=== PATIENT | male | born 2000 | race Caucasian/White ===

== ENCOUNTER 2022-07-03 19:47 | Emergency (ER) | payer MEDICAID ==
[~2022-07-03] VITALS: Ht 182.9 cm; Wt 70.5 kg
[2022-07-03] MEDS ORDERED: ACETAMINOPHEN 500 MG TABLET PO ONE (20:00)
[2022-07-03] MEDS ORDERED: GuaiFENesin/D-METHORPHAN [SUGAR-FREE] 200-20MG/10 ML SYRUP UDCUP PO ONE (20:00)
[2022-07-03] MEDS ORDERED: IBUPROFEN 600 MG TABLET PO ONE (20:00)
[2022-07-03 20:12] LABS: COVID AG,FIA SOURCE NASAL SWAB
[2022-07-03 20:37] LABS: INFLUENZA TYPE B NEGATIVE FOR TYPE B (NEGATIVE)
[2022-07-03 21:03] LABS: INFLUENZA TYPE A POSITIVE FOR TYPE A (NEGATIVE)
[2022-07-03] MEDS ORDERED: GUAIFDM PO (21:11)
[2022-07-03] MEDS ORDERED: ACET-2080 PO (21:11)
[2022-07-03] MEDS ORDERED: IBUP-1554 PO (21:11)
[2022-07-03 21:30] VITALS: BP 115/77
== END 2022-07-03 21:35 | disposition home or self-care (01) ==
LOC: EMS 19:47
DX: J10.1 Influenza due to other identified influenza virus with other respiratory manifestations (principal); Z20.822 Contact with and (suspected) exposure to COVID-19
CPT/HCPCS: 87804; 99284; Z7502; Z7610

== ENCOUNTER 2022-09-16 09:38 | Emergency (ER) | payer MEDICAID, OTHER ==
[~2022-09-16] VITALS: Ht 175.3 cm; Wt 72.7 kg
[~2022-09-16 09:38] MED LIST: ACET-2080 PO; GUAIFDM PO; IBUP-1554 PO
[2022-09-16 11:04] LABS: BASOPHILS % (AUTO) 0.2 % (0.0-2.0); EOSINOPHILS % (AUTO) 0 % (1.0-6.0); HEMATOCRIT 43.2 % (41-53); HEMOGLOBIN 14.2 g/dL (13.5-17.5); LYMPHOCYTES # (AUTO) 0.5 K/uL (1.0-4.8); LYMPHOCYTES % (AUTO) 4.6 % (22.0-44.0); MEAN CORPUSCULAR HEMOGLOBIN 28.2 pg (26.0-34.0); MEAN CORPUSCULAR HGB CONC 32.8 G/dL (31.0-37.0); MEAN CORPUSCULAR VOLUME 86 fL (80-100); MONOCYTES # (AUTO) 0.6 K/uL (0.1-1.0); MONOCYTES % (AUTO) 4.8 % (2.0-9.0); NEUTROPHILS # (AUTO) 10.5 K/uL (1.8-7.7); PLATELET COUNT (AUTO) 193 K/uL (150-450); RED BLOOD CELL COUNT(AUTO) 5.03 MIL/uL (4.50-5.90); RED CELL DISTRIBUTION WIDTH 14.2 % (11.5-14.5)
[2022-09-16 11:07] LABS: NEUTROPHILS % (AUTO) 90.4 % (40.0-70.0)
[2022-09-16 11:15] LABS: ANION GAP 10 mmol/L (8-16); CALCIUM, TOTAL 9.4 mg/dL (8.8-10.5); CARBON DIOXIDE 27 mmol/L (22-29); CHLORIDE 103 mmol/L (98-107); CREATININE 0.88 mg/dL (0.60-1.30); GLOMERULAR FILTR. RATE CALC > 60 mL/min (>60); GLUCOSE,RANDOM 126 mg/dL (70-110); POTASSIUM 4.3 mmol/L (3.5-5.1); SODIUM SERUM 140 mmol/L (136-145); UREA NITROGEN, BLOOD 13 mg/dL (7-18)
[2022-09-16 11:21] LABS: ALANINE AMINOTRANSFERASE 22 U/L (12-78); ALBUMIN 4.4 g/dL (3.4-5.0); ALKALINE PHOSPHATASE 93 U/L (46-116); ASPARTATE AMINOTRANSFERASE 21 U/L (15-37); BILIRUBIN,TOTAL 0.9 mg/dL (0.1-1.0); LIPASE 108 U/L (73-393); TOTAL PROTEIN, SERUM 8.1 g/dL (6.4-8.2)
[2022-09-16 11:23] LABS: LACTIC ACID 1.3 mmol/L (0.4-2.0)
[2022-09-16] MEDS ORDERED: SODIUM CHLORIDE 0.9% 100 ML ONE (11:26)
[2022-09-16] MEDS ORDERED: IOHEXOL 350 MG/ML 100 ML VIAL ONE (11:26)
[2022-09-16] MEDS ORDERED: MORPHINE SULFATE 4 MG/ML SYRINGE IVP ONE (11:30)
[2022-09-16] MEDS ORDERED: BARIUM SULFATE 0.1% SUSPENSION 450 ML BOTTLE PO ONE (11:30)
[2022-09-16] MEDS ORDERED: ONDANSETRON HCL 4 MG/2 ML VIAL IVP ONE (11:30)
[2022-09-16] MEDS ORDERED: SODIUM CHLORIDE 0.9% 1,000 ML IV ONE (11:30)
[2022-09-16] MEDS ORDERED: ACET-66 PO (14:01)
[2022-09-16] MEDS ORDERED: ONDA-104 PO (14:01)
[2022-09-16] MEDS ORDERED: SULF-261 PO (14:01)
[2022-09-16] MEDS ORDERED: OMEP20 PO (14:01)
[2022-09-16 14:19] VITALS: BP 115/87
== END 2022-09-16 14:26 | disposition home or self-care (01) ==
LOC: EMS 10:21
DX: K52.9 Noninfective gastroenteritis and colitis, unspecified (principal); R10.10 Upper abdominal pain, unspecified; F17.210 Nicotine dependence, cigarettes, uncomplicated
CPT/HCPCS: 99285; 74177; 96374; 96361; 96375; 80053; 83605; 83690; 84484; 85025; J2270; J2405; Q9967; J7030; J7050

== ENCOUNTER 2023-11-10 07:16 | Emergency (ER) | payer SELFPAY ==
[~2023-11-10] VITALS: Ht 177.8 cm; Wt 65.9 kg
[~2023-11-10 07:16] MED LIST changes: -ACET-2080 PO; +ACET-66 PO; -GUAIFDM PO; -IBUP-1554 PO; +OMEP20 PO; +ONDA-104 PO; +SULF-261 PO
[2023-11-10 08:02] LABS: BASOPHILS % (AUTO) 0.2 % (0.0-2.0); MONOCYTES # (AUTO) 0.9 K/uL (0.1-1.0)
[2023-11-10 08:07] LABS: EOSINOPHILS % (AUTO) 0.2 % (1.0-6.0); HEMATOCRIT 45.1 % (41-53); HEMOGLOBIN 15.2 g/dL (13.5-17.5); LYMPHOCYTES # (AUTO) 1.3 K/uL (1.0-4.8); LYMPHOCYTES % (AUTO) 10.2 % (22.0-44.0); MEAN CORPUSCULAR HEMOGLOBIN 29.1 pg (26.0-34.0); MEAN CORPUSCULAR HGB CONC 33.8 G/dL (31.0-37.0); MEAN CORPUSCULAR VOLUME 86 fL (80-100); MONOCYTES % (AUTO) 6.9 % (2.0-9.0); NEUTROPHILS # (AUTO) 10.6 K/uL (1.8-7.7); NEUTROPHILS % (AUTO) 82.5 % (40.0-70.0); PLATELET COUNT (AUTO) 204 K/uL (150-450); RED BLOOD CELL COUNT(AUTO) 5.25 MIL/uL (4.50-5.90); RED CELL DISTRIBUTION WIDTH 14.9 % (11.5-14.5); WHITE BLOOD COUNT (AUTO) 12.8 K/uL (4.5-11.0)
[2023-11-10 08:09] LABS: ANION GAP 10 mmol/L (8-16); CARBON DIOXIDE 26 mmol/L (22-29); CHLORIDE 100 mmol/L (98-107); CREATININE 0.85 mg/dL (0.60-1.30); GLOMERULAR FILTR. RATE CALC > 60 mL/min (>60); GLUCOSE,RANDOM 182 mg/dL (70-110); POTASSIUM 3.8 mmol/L (3.5-5.1); SODIUM SERUM 136 mmol/L (136-145); UREA NITROGEN, BLOOD 17 mg/dL (7-18)
[2023-11-10] MEDS: FAMOTIDINE 20 MG/2 ML VIAL IVP ONE (08:15)
[2023-11-10] MEDS: ONDANSETRON HCL 4 MG/2 ML VIAL IVP ONE (08:15)
[2023-11-10 08:16] LABS: ALANINE AMINOTRANSFERASE 22 U/L (12-78); ALKALINE PHOSPHATASE 67 U/L (46-116); ASPARTATE AMINOTRANSFERASE 26 U/L (15-37); BILIRUBIN,TOTAL 0.4 mg/dL (0.1-1.0); LIPASE 30 U/L (16-77); TOTAL PROTEIN, SERUM 7.7 g/dL (6.4-8.2)
[2023-11-10] MEDS: SODIUM CHLORIDE 0.9% 1,000 ML IV ONE (08:16)
[2023-11-10 10:22] LABS: APPEARANCE,URINE CLEAR (CLEAR); BILIRUBIN,URINE NEGATIVE (NEGATIVE); COLOR,URINE YELLOW (YELLOW); GLUCOSE, URINE (UA) 70-100 mg/dL (NEGATIVE); LEUKOCYTE ESTERASE ,URINE NEGATIVE (NEGATIVE); NITRATE,URINE NEGATIVE (NEGATIVE); OCCULT BLOOD,URINE NEGATIVE (NEGATIVE); PROTEIN,URINE 30-70 mg/dL (NEGATIVE); SPECIFIC GRAVITIY, URINE 1.036 (1.003-1.030); UROBILINOGEN,URINE <=1.0 mg/dL (<=1.0)
[2023-11-10 10:32] LABS: BACTERIA,URINE Few /HPF (None Seen); RBC,URINE None Seen /HPF (0-2); SQUAMOUS EPITHELIAL CELL,UR Few /LPF (None Seen); WBC,URINE None Seen /HPF (0-5)
[2023-11-10] MEDS: HALOPERIDOL LACTATE 5 MG/ML VIAL IVP ONE (13:22)
[2023-11-10] MEDS: DiphenhydrAMINE HCL 50 MG/ML VIAL IVP ONE (13:22)
[2023-11-10] MEDS: MORPHINE SULFATE 2 MG/ML SYRINGE IVP ONE (13:23)
[2023-11-10 14:01] VITALS: TEMP 97.9
[2023-11-10] MEDS ORDERED: ONDA-104 PO (15:39)
[2023-11-10 15:59] VITALS: BP 124/76; PULSE 76; RESP 16
== END 2023-11-10 16:10 | disposition home or self-care (01) ==
LOC: EMS 07:16
DX: R10.13 Epigastric pain (principal); R11.2 Nausea with vomiting, unspecified; F17.210 Nicotine dependence, cigarettes, uncomplicated
CPT/HCPCS: 99285; 74176; 96374; 96375; 96361; 80053; 81001; 83690; 85025; 36415; J1200; J3490; J1630; J2270; J2405; J7030